=== PATIENT | male | born 1945 | race Two or more races ===

== ENCOUNTER 2018-06-04 12:27 | Inpatient (IN) | payer OTHER ==
--- NOTE | 2018-06-04 12:38 | PDOC ---
History of Present Illness - General Chief Complaint: Chest Pain Stated Complaint: CHEST PAIN Time Seen by Provider: 06/04/18 12:38 - History of Present Illness Initial Comments: 73 year old male with PMH of [place] (10 years prior in [place] without ay known intervention), HTN, HLD, and IDDM presenting from Dr. Whiting's office for one month of chest pain, tachycardia, and EKG changes with prior to compare to. Patient states that he has had 3-4 months of left shoulder pain that is achy and intermittent and (he stats) unrelated chest pain for the past month that he describes achy, non-exertional, non-pleuritic, intermittent, max 6/10 in severity, without exacerbating or relieving factors. He denies co-presenting, nausea, vomiting, or diaphoresis. Additionally, he is complaining of some right shoulder pain since a fall onto that side three days prior as well as some lower back pain. 06/04/18 13:10 Past History - Past Medical History Allergies/Adverse Reactions: Allergies Allergy/AdvReac Type Severity Reaction Status Date / Time No Known Allergies Allergy Verified 06/04/18 12:43 Home Medications: Ambulatory Orders Acetaminophen [Tylenol] 325 mg PO TID 06/04/18 Atorvastatin Ca [Lipitor] 40 mg PO HS 06/04/18 Enalapril Maleate [Vasotec] 20 mg PO DAILY 06/04/18 Ferrous Sulfate [Feosol] 325 mg PO DAILY 06/04/18 Gabapentin 100 mg PO BID 06/04/18 Glimepiride 4 mg PO DAILY 06/04/18 Insulin Degludec [Tresiba Flextouch U-200] 35 unit SQ HS 06/04/18 Insulin Lispro [Humalog] 10 unit SQ TID 06/04/18 Metformin HCl [Glucophage] 850 mg PO BID 06/04/18 hydrOXYzine HCL [Atarax -] 25 mg PO BID 06/04/18 Review of Systems - Review of Systems Constitutional: No: Chills, Diaphoresis, Fever HEENTM: No: Blurred Vision, Tearing Respiratory: No: Cough, Orthopnea, Shortness of Breath Cardiac (ROS): Yes: Chest Pain. No: Irregular Heart Rate, Lightheadedness, Palpitations, Syncope, Chest Tightness ABD/GI: No: Constipated, Diarrhea, Nausea, Vomiting : No: Dysuria, Discharge, Hematuria Musculoskeletal: No: Gout, Joint Pain Integumentary: No: Bruising, Erythema, Flushing, Lesions Neurological: No: Numbness, Paresthesia Psychiatric: No: Anxiety, Depression Hematologic/Lymphatic: No: Anemia, Blood Clots, Easy Bleeding *Physical Exam - Physical Exam General Appearance: Yes: Nourished, Appropriately Dressed. No: Apparent Distress HEENT: positive: EOMI, KEVIN, Normal ENT Inspection, Normal Voice Neck: positive: Trachea midline, Normal Thyroid, Supple. negative: Tender, Rigid Respiratory/Chest: positive: Lungs Clear. negative: Chest Tender, Normal Breath Sounds (distant lung sounds with extended expiratory phase), Accessory Muscle Use Cardiovascular: positive: Regular Rhythm, Tachycardia. negative: Regular Rate Gastrointestinal/Abdominal: positive: Normal Bowel Sounds, Flat, Soft. negative : Tender Lymphatic: negative: Adenopathy, Tenderness Musculoskeletal: negative: Normal Inspection (right shoulder tenderness and some lumbar back pain) Extremity: positive: Normal Capillary Refill, Tender. negative: Normal Inspection, Normal Range of Motion (slightly decreaed range of motion in th eleft shoulder) Integumentary: positive: Normal Color, Dry, Warm Neurologic: positive: Fully Oriented, Alert, Normal Mood/Affect, Normal Response , Motor Strength 5/5 Heart Score/ECG Review - History History: Slightly suspicious - Electrocardiogram EKG: Non specific repolarization disturbance - Age Age: >/= 65 - Risk Factors Risk Factors Heart Score: Yes Hx Hypertension, Yes Hx Diabetes, Yes Smoking History Based on the list above the patient has:: >/=3 risk factors or Hx atherosclerotic disease - Troponin Troponin: </= normal limit - Score Heart Score - Total: 5 ED Treatment Course - LABORATORY CBC & Chemistry Diagram: 06/04/18 13:00 06/04/18 13:00 Medical Decision Making - Medical Decision Making 73 year old male with PMH of HTN, HLD, smoking presenting with one month of chest pain and left shoulder pain. His troponin and D-dimer were negative and EKG demonstrating rate 116, MT 184, QRS 80, QTc 442, normal axis, with T wave inversion in V2 with dep S waves in II, III, AVF, and V1/ V3 without prior ekg to compare it to. Given his heart score of 5 and no previous cardiac workup in the [place] states, he will be brought in under tele obs for further evaluation under Dr. Ross with sign out to him. 06/04/18 15:56 Dr. Ross would also like consult placed fro Dr. Garner. 06/04/18 16:24 *DC/Admit/Observation/Transfer Diagnosis at time of Disposition: Ruled out for myocardial infarction - Discharge Dispostion Condition at time of disposition: Stable Decision to Admit order: Yes - Referrals Referrals: Vamsi Campbell MD [Primary Care Provider] - - Patient Instructions - Post Discharge Activity
--- NOTE | 2018-06-04 13:12 | PDOC ---
Attending Attestation - HPI HPI: 06/04/18 13:50 The patient is a 73 year old male with a significant PMH of hypertension, hyperlipidemia, [place] (10 years ago, medically treated ) who presents to the emergency department from PCP office with chest pain since earlier today. The patient reports that he was at his PCP office today ( Dr. Campbell) for a normal check up when he began to experience his chest pain. The patient reports that he was sent to the ED for further evaluation for that as well as for tachycardia , EKG changes and hypertension. The patient reports that he has been experiencing this intermittent chest pain for about 1 month. He denies any exacerbating or relieving factors. He describes his chest pain as sentral and a 5/10 in severity. He also reports some left shoulder pain that he has been experiencing for 4 months. He denies any other symptoms. He denies and fever, chills, nausea, vomiting, diarrhea, constipation or urinary symptoms. He denies any shortness of breath, headache or dizziness. The patient denies any other complaints. - Physicial Exam PE: 06/04/18 14:26 Vitals: Triage vital signs reviewed General Appearance: No acute distress, well nourished, well developed Head: Atraumatic Chest Wall: Nontender Cardiac: Regular rate and rhythm, no murmurs, no rubs, no gallops Lungs: Clear to auscultation bilateral, good air movement bilaterally Abdomen: Soft, nondistended, normal bowel sounds, nontender to palpation Extremities: Full range of motion to all extremities, no cyanosis, clubbing, or edema Skin: Warm and dry, no rashes or lesions, no rash, no petechiae Neuro: AOX3; Cranial Nerves 2-12 grossly intact, Strength intact to all extremities, Sensation intact to all extremities, gait normal Psych: Normal mood, normal affect <Lisseth Hendrix - Last Filed: 06/04/18 14:26> - Resident Resident Name: Monik Cash - Medical Decision Making 06/04/18 15:41 73 years old no recent follow-up with cardiology presents to the ED with chest pain Multiple risk factors nonischemic EKG mild tachycardia. Given tachycardia a d-dimer was ordered to risk stratify No other PE DVT risk factors D-dimer below age-adjusted threshold low suspicion for PE at this time Given heart score greater than 4 we will observe for cardiac evaluation and further management. <Artie Morejon - Last Filed: 06/04/18 15:43> Heart Score/ECG Review - History History: Moderately suspicious - Electrocardiogram EKG: Normal - Age Age: >/= 65 - Risk Factors Risk Factors Heart Score: Yes Hx Hypercholesterolemia, Yes Hx Hypertension, Yes Positive family hx of cardiac disease Based on the list above the patient has:: >/=3 risk factors or Hx atherosclerotic disease - Troponin Troponin: </= normal limit - Score Heart Score - Total: 5 - ECG Impressions Comment:: 06/04/18 15:43 EKG performed at 1237 demonstrates sinus tachycardia [address] elevations or T-wave inversions. Interpreted by me. <Artie Morejon - Last Filed: 06/04/18 15:43> Attestations - Attestations 06/04/18 14:26 Documentation prepared by Lisseth Hendrix, acting as medical office supervisor for Artie Morejon MD. <Lisseth Hendrix - Last Filed: 06/04/18 14:26>
[2018-06-04] MEDS ORDERED: ASPIRIN 81 MG CHEWABLE TABLETS PO ONE ×2 (13:39→14:00)
[2018-06-04 13:52] LABS: BASO % 0.6 % (0-2.0); EOS % 2.3 % (0-4.5); HEMATOCRIT 35.4 % (35.4-49); HEMOGLOBIN 12.1 GM/dL (11.7-16.9); LYMPH % 30.4 % (8-40); MCH 31.6 pg (25.7-33.7); MCHC 34.1 g/dl (32.0-35.9); MEAN CELL VOLUME 92.6 fl (80-96); MEAN PLT VOLUME 9.1 fl (7.5-11.1); MONO % 6.3 % (3.8-10.2); NEUT % 60.4 % (42.8-82.8); PLATELET COUNT 304 K/MM3 (134-434); RBC 3.82 M/mm3 (4.00-5.60); RDW 13.3 % (11.9-15.9); WHITE BLOOD COUNT 11.4 K/mm3 (4.0-10.0)
[2018-06-04 13:59] LABS: INR 0.97 (0.83-1.09); PROTHROMBIN TIME (PATIENT) 11.4 SEC (9.7-13.0)
[2018-06-04] MEDS ORDERED: ASPIRIN 81 MG CHEWABLE TABLETS ONE (14:02)
[2018-06-04 14:09] LABS: ALBUMIN 4.2 g/dl (3.4-5.0); ALK PHOS 73 U/L (45-117); ANION GAP 11 MMOL/L (8-16); BILIRUBIN,TOTAL 0.5 mg/dL (0.2-1); BLOOD UREA NITROGEN 35 mg/dL (7-18); CALCIUM 9.5 mg/dL (8.5-10.1); CHLORIDE 100 mmol/L (98-107); CO2 25 mmol/L (21-32); CREATININE 1.2 mg/dL (0.55-1.3); GLUCOSE,RANDOM 196 mg/dL (74-106); N-TERMINAL BNP 54.7 pg/ml (5-125); POTASSIUM 4.6 mmol/L (3.5-5.1); SGOT/AST 29 U/L (15-37); SGPT/ALT 56 U/L (13-61); SODIUM 136 mmol/L (136-145); TOT PROT 7.6 g/dl (6.4-8.2)
--- NOTE | 2018-06-04 16:12 | EKG ---
Test Reason : Blood Pressure : / mmHG Vent. Rate : 116 BPM Atrial Rate : 116 BPM P-R Int : 184 ms QRS Dur : 080 ms QT Int : 318 ms P-R-T Axes : 053 -24 074 degrees QTc Int : 442 ms SINUS TACHYCARDIA POSSIBLE LEFT ATRIAL ENLARGEMENT CANNOT RULE OUT ANTERIOR INFARCT , AGE UNDETERMINED ABNORMAL ECG NO PREVIOUS ECGS AVAILABLE Confirmed by MD Narayanan Daniel ([id number]) on 06/04/2018 4:12:30 PM Referred By: Confirmed By:Jude Narayanan MD
[2018-06-04] MEDS ORDERED: ACETAMINOPHEN 325 MG TABLET (FP) PO PRN (17:39)
--- NOTE | 2018-06-04 17:39 | CON.CARD ---
Consult Consult Specialty:: Cardiology Referred by:: Dr. Campbell Reason for Consultation:: chest pain - History of Present Illness Chief Complaint: chest pain History of Present Illness: 73 year old man pmh HTN, HLD, DMII, CAD reported [place] 10 years ago in [place] treated medically, admission [facility] 1 year ago for chest pain as per daughter may have had a stress test and echo that were normal. Pt seen in Dr. Romero office today with c/o 1 months h/o chest pain. seen and examined in er in nad. no current chest pain states it comes on randomnly not associated with exertion. no sob, palpitations or other associated sxs. - Alcohol/Substance Use Hx Alcohol Use: No - Smoking History Smoking history: Former smoker Have you smoked in the past 12 months: No Home Medications - Allergies Allergies/Adverse Reactions: Allergies Allergy/AdvReac Type Severity Reaction Status Date / Time No Known Allergies Allergy Verified 06/04/18 12:43 - Home Medications Home Medications: Ambulatory Orders Acetaminophen [Tylenol] 325 mg PO TID 06/04/18 Atorvastatin Ca [Lipitor] 40 mg PO HS 06/04/18 Enalapril Maleate [Vasotec] 20 mg PO DAILY 06/04/18 Ferrous Sulfate [Feosol] 325 mg PO DAILY 06/04/18 Gabapentin 100 mg PO BID 06/04/18 Glimepiride 4 mg PO DAILY 06/04/18 Insulin Degludec [Tresiba Flextouch U-200] 35 unit SQ HS 06/04/18 Insulin Lispro [Humalog] 10 unit SQ TID 06/04/18 Metformin HCl [Glucophage] 850 mg PO BID 06/04/18 hydrOXYzine HCL [Atarax -] 25 mg PO BID 06/04/18 Vital Signs: Vital Signs Temperature 98.0 F 06/04/18 12:30 Pulse Rate 110 H 06/04/18 12:43 Respiratory Rate 16 06/04/18 12:30 Blood Pressure 161/89 06/04/18 12:30 O2 Sat by Pulse Oximetry (%) 95 06/04/18 12:43 - Other Data Labs, Other Data: CBC, BMP 06/04/18 13:00 06/04/18 13:00 INR, PTT INR 0.97 (0.83-1.09) 06/04/18 13:00 Troponin, BNP 06/04/18 13:00 Troponin I < 0.02 B-Natriuretic Peptide 54.7 Troponin, BNP 06/04/18 13:00 Troponin I < 0.02 B-Natriuretic Peptide 54.7 Assessment/Plan 73 year old man pmh HTN, HLD, DMII, CAD reported [place] 10 years ago in [place] treated medically, admission [facility] 1 year ago for chest pain as per daughter may have had a stress test and echo that were normal. Pt seen in Dr. Romero office today with c/o 1 months h/o chest pain. seen and examined in er in nad. no current chest pain states it comes on randomnly not associated with exertion. no sob, palpitations or other associated sxs. Chest pain-atypical but mult cardiac risk factors -troponin wnl x1 -needs serial cardiac enzymes and ekgs including CK level -admission ekg shows sinus tach 116bpm with possible old anterior infarct -clarify home meds -start asa 81mg daily, statin, bblocker -tele monitoring -if cardiac enzymes wnl plan for echo and nuclear stress test tomorrow, npo after midnight
[2018-06-04] MEDS ORDERED: ACETAMINOPHEN 325 MG TABLET (FP) ONE (17:42)
[2018-06-04] MEDS ORDERED: hydrOXYzine HCL 50 MG/ML VIAL IM ONE (21:50)
[2018-06-04] MEDS ORDERED: ATORVASTATIN CA 10 MG TABLET (FP) ONE (21:50)
[2018-06-04] MEDS ORDERED: HEPARIN NA (PORCINE) 5,000 UNITS/ML 1ML VIAL ONE (21:51)
[2018-06-04] MEDS ORDERED: GABAPENTIN 100 MG CAPSULE (FP) ONE (21:51)
[2018-06-04] MEDS ORDERED: INSULIN (LEVEMIR) 100 UNITS/ML UNITS SQ ONE (21:51)
[2018-06-04] MEDS ORDERED: PATIENT'S OWN MEDICATION (NON-FORMULARY) (Acetaminophen [Tylenol] 325 MG) PO SCH (22:00)
[2018-06-04] MEDS: HEPARIN NA (PORCINE) 5,000 UNITS/ML 1ML VIAL SQ SCH (22:07)
[2018-06-04] MEDS: GABAPENTIN 100 MG CAPSULE (FP) PO SCH (22:07)
[2018-06-04] MEDS: INSULIN (LEVEMIR) 100 UNITS/ML UNITS SQ SCH (22:07)
[2018-06-04] MEDS: hydrOXYzine HCL 25 MG TABLET (FP) PO SCH (22:07)
[2018-06-04] MEDS: ATORVASTATIN CA 40 MG TABLET (FP) PO SCH (22:07)
[2018-06-04] MEDS ORDERED: INSULIN (NOVOLOG) ASPART 100 UNITS/ML 10ML VIAL ONE (22:10)
[2018-06-04] MEDS: INSULIN SLIDING SCALE (NOVOLOG) 1 VIAL SQ SCH (22:18)
[2018-06-05 05:56] LABS: BASO % 0.3 % (0-2.0); EOS % 0.9 % (0-4.5); HEMATOCRIT 34.3 % (35.4-49); HEMOGLOBIN 11.7 GM/dL (11.7-16.9); LYMPH % 15.4 % (8-40); MCHC 34.1 g/dl (32.0-35.9); MEAN PLT VOLUME 8.1 fl (7.5-11.1); MONO % 6.1 % (3.8-10.2); NEUT % 77.3 % (42.8-82.8); PLATELET COUNT 277 K/MM3 (134-434); RBC 3.77 M/mm3 (4.00-5.60); RDW 13.1 % (11.9-15.9); WHITE BLOOD COUNT 12.3 K/mm3 (4.0-10.0)
[2018-06-05 06:39] LABS: ALBUMIN 3.8 g/dl (3.4-5.0); ALK PHOS 69 U/L (45-117); ANION GAP 7 MMOL/L (8-16); BLOOD UREA NITROGEN 26 mg/dL (7-18); CALCIUM 9.2 mg/dL (8.5-10.1); CHLORIDE 106 mmol/L (98-107); CHOLESTEROL 106 mg/dL (50-200); CO2 27 mmol/L (21-32); CREATININE 0.9 mg/dL (0.55-1.3); GLUCOSE,RANDOM 57 mg/dL (74-106); HDL CHOLESTEROL 29 mg/dL (40-60); POTASSIUM 3.4 mmol/L (3.5-5.1); SGOT/AST 23 U/L (15-37); SGPT/ALT 57 U/L (13-61); SODIUM 140 mmol/L (136-145); TRIGLYCERIDES 118 mg/dL (0-150)
[2018-06-05 06:42] LABS: BILIRUBIN,TOTAL 0.4 mg/dL (0.2-1); TOT PROT 6.9 g/dl (6.4-8.2)
[2018-06-05] MEDS ORDERED: REGADENOSON 0.4 MG/5 ML PRE-FILLED SYRINGE IVPUSH ONE ×3 (09:00→14:00)
[2018-06-05] MEDS: INSULIN SLIDING SCALE (NOVOLOG) 1 VIAL SQ SCH ×4 (11:13→22:13)
[2018-06-05] MEDS: hydrOXYzine HCL 25 MG TABLET (FP) PO SCH ×2 (11:14→22:15)
[2018-06-05] MEDS: GABAPENTIN 100 MG CAPSULE (FP) PO SCH ×2 (11:14→22:15)
[2018-06-05] MEDS ORDERED: ENALAPRIL MALEATE 5 MG TABLET (FP) ONE (11:17)
[2018-06-05] MEDS: ENALAPRIL MALEATE 10 MG TABLET (FP) PO SCH (11:18)
[2018-06-05] MEDS: HEPARIN NA (PORCINE) 5,000 UNITS/ML 1ML VIAL SQ SCH ×2 (11:31→22:15)
--- NOTE | 2018-06-05 13:14 | ECHO ---
Name: FRANKLIN CRUM IRISH Exam:Adult Echocardiogram Study Date: 06/05/2018 07:43 AM Age: 73 yrs Reason For Study: CHEST PAIN Height: 60 in Weight: 155 lb BSA: 1.7 m2 MMode/2D Measurements & Calculations IVSd: 1.1 cm Ao root diam: 3.1 cm LVIDd: 4.1 cm LA dimension: 3.4 cm LVIDs: 2.9 cm LVPWd: 1.1 cm EDV(Teich): 73.5 ml LVOT diam: 2.2 cm ESV(Teich): 31.2 ml RV S Kevin: 13.5 cm/sec Doppler Measurements & Calculations Ao V2 max: 121.6 cm/sec LV V1 max P.1 mmHg Ao max P.9 mmHg LV V1 mean P.4 mmHg Ao V2 mean: 76.9 cm/sec LV V1 max: 87.9 cm/sec Ao mean P.9 mmHg LV V1 mean: 53.2 cm/sec Ao V2 VTI: 20.9 cm LV V1 VTI: 15.9 cm SIMON(I,D): 3.0 cm2 SIMON(V,D): 2.8 cm2 SV(LVOT): 61.7 ml Lat Peak E' Kevin: 4.4 cm/sec Procedure A two-dimensional transthoracic echocardiogram with color flow and Doppler was performed. Left Ventricle The left ventricular size, thickness and function are normal. The left ventricular ejection fraction is normal. The left ventricular wall motion is normal. Right Ventricle The right ventricle is normal in size and function. Atria Normal left and right atrial size and function. Chiari network (normal variant) is noted. A prominent eustachian valve is noted. The atrial septum is aneurysmal. Mitral Valve There is mild mitral valve thickening. There is no mitral valve stenosis. There is mild mitral regurg itation. Tricuspid Valve There is mild tricuspid valve thickening. There is no tricuspid stenosis. There was insufficient TR d etected to calculate RV systolic pressure. Aortic Valve The aortic valve is normal in structure and function. No hemodynamically significant valvular aortic stenosis. No aortic regurgitation is present. Pulmonic Valve The pulmonic valve is not well visualized. There is no pulmonic valvular stenosis. Trace pulmonic marko vular regurgitation. Pericardium/Pleura Small pericardial effusion (<1cm). Interpretation Summary The left ventricular size, thickness and function are normal The left ventricular ejection fraction is normal. The left ventricular wall motion is normal. Small pericardial effusion (<1cm) There is mild mitral regurgitation. Chiari network (normal variant) is noted. A prominent eustachian valve is noted. There was insufficient TR detected to calculate RV systolic pressure. The atrial septum is aneurysmal. MD Michael Pompa 06/05/2018 01:13 PM
--- NOTE | 2018-06-05 14:49 | EKG ---
Test Reason : Blood Pressure : / mmHG Vent. Rate : 104 BPM Atrial Rate : 104 BPM P-R Int : 194 ms QRS Dur : 082 ms QT Int : 338 ms P-R-T Axes : 049 -32 086 degrees QTc Int : 444 ms SINUS TACHYCARDIA LEFT AXIS DEVIATION NONSPECIFIC T WAVE ABNORMALITY ABNORMAL ECG WHEN COMPARED WITH ECG OF 04-JUN-2018 12:37, NO SIGNIFICANT CHANGE WAS FOUND Confirmed by ETHAN BUTLER, ISAAC ([id number]) on 06/05/2018 2:49:18 PM Referred By: Rozina THORNTON Confirmed By:ISAAC LONG MD
--- NOTE | 2018-06-05 16:49 | PN ---
Progress Note, Physician Chief Complaint: Comfortable History of Present Illness: 73 year old man pmh HTN, HLD, DMII, CAD reported [place] 10 years ago in [place] treated medically, admission [facility] 1 year ago for chest pain as per daughter may have had a stress test and echo that were normal. Pt seen in Dr. Romero office today with c/o 1 months h/o chest pain. seen and examined in er in nad. no current chest pain states it comes on randomnly not associated with exertion. no sob, palpitations or other associated sxs. - Current Medication List Current Medications: Active Medications Acetaminophen (Tylenol -) 650 mg PO Q6H PRN PRN Reason: PAIN LEVEL 4 - 6 Atorvastatin Calcium (Lipitor -) 40 mg PO [facility] Last Admin: 06/04/18 22:07 Dose: 40 mg Enalapril Maleate (Vasotec -) 20 mg PO DAILY [facility] Last Admin: 06/05/18 11:18 Dose: 20 mg Gabapentin (Neurontin -) 100 mg PO BID [facility] Last Admin: 06/05/18 11:14 Dose: Not Given Heparin Sodium (Porcine) (Heparin -) 5,000 unit SQ BID [facility] Last Admin: 06/05/18 11:31 Dose: Not Given Hydroxyzine HCl (Atarax -) 25 mg PO BID [facility] Last Admin: 06/05/18 11:14 Dose: Not Given Insulin Aspart (Novolog Vial Sliding Scale -) 1 vial SQ [facility]; Protocol Last Admin: 06/05/18 11:31 Dose: Not Given Insulin Detemir (Levemir Vial) 35 units SQ [facility] Last Admin: 06/04/18 22:07 Dose: 35 unit - Objective Vital Signs: Vital Signs Temperature 98.0 F 06/05/18 06:45 Pulse Rate 74 06/05/18 06:45 Respiratory Rate 15 06/05/18 06:45 Blood Pressure 134/79 06/05/18 06:45 O2 Sat by Pulse Oximetry (%) 98 06/05/18 06:45 Constitutional: Yes: Well Nourished HENT: Yes: WNL Neck: Yes: WNL Cardiovascular: Yes: Regular Rate and Rhythm (NL S1S2 No MRHG) Respiratory: Yes: CTA Bilaterally Gastrointestinal: Yes: Soft Labs: CBC, BMP 06/05/18 05:30 06/05/18 05:30 INR, PTT INR 0.97 (0.83-1.09) 06/04/18 13:00 Assessment/Plan 73 year old man pmh HTN, HLD, DMII, CAD reported [place] 10 years ago in [place] treated medically, admission [facility] 1 year ago for chest pain as per daughter may have had a stress test and echo that were normal. Pt seen in Dr. Romero office today with c/o 1 months h/o chest pain. seen and examined in er in nad. no current chest pain states it comes on randomnly not associated with exertion. no sob, palpitations or other associated sxs. Nuclear stress test negative for myocardial ischemia. Echocardiogram NL LV function. No further cardiac testing required. Call us PRN.
[2018-06-05] MEDS ORDERED: INSULIN (NOVOLOG) ASPART 100 UNITS/ML 10ML VIAL ONE (17:18)
[2018-06-05] MEDS ORDERED: POTASSIUM CHLORIDE TABS 10 MEQ TABLET.ER (FP) PO ONE (17:39)
--- NOTE | 2018-06-05 17:42 | HP ---
Admitting History and Physical - Primary Care Physician PCP: Vamsi Campbell - Admission Chief Complaint: Chest pain History of Present Illness: 73 year old male with PMH of [place] (10 years prior in [place] without ay known intervention), HTN, HLD, and IDDM presenting from Dr. Whiting's office for one month of chest pain, tachycardia, and EKG changes with prior to compare to. Patient states that he has had 3-4 months of left shoulder pain that is achy and intermittent and (he stats) unrelated chest pain for the past month that he describes achy, non-exertional, non-pleuritic, intermittent, max 6/10 in severity, without exacerbating or relieving factors. He denies co-presenting, nausea, vomiting, or diaphoresis. Additionally, he is complaining of some right shoulder pain since a fall onto that side three days prior as well as some lower back pain. History Source: Patient, Medical Record Limitations to Obtaining History: No Limitations - Smoking History Smoking history: Former smoker Have you smoked in the past 12 months: No - Alcohol/Substance Use Hx Alcohol Use: No Home Medications - Allergies Allergies/Adverse Reactions: Allergies Allergy/AdvReac Type Severity Reaction Status Date / Time No Known Allergies Allergy Verified 06/04/18 12:43 - Home Medications Home Medications: Ambulatory Orders Acetaminophen [Tylenol] 325 mg PO TID 06/04/18 Atorvastatin Ca [Lipitor] 40 mg PO HS 06/04/18 Enalapril Maleate [Vasotec] 20 mg PO DAILY 06/04/18 Ferrous Sulfate [Feosol] 325 mg PO DAILY 06/04/18 Gabapentin 100 mg PO BID 06/04/18 Glimepiride 4 mg PO DAILY 06/04/18 Insulin Degludec [Tresiba Flextouch U-200] 35 unit SQ HS 06/04/18 Insulin Lispro [Humalog] 10 unit SQ TID 06/04/18 Metformin HCl [Glucophage] 850 mg PO BID 06/04/18 hydrOXYzine HCL [Atarax -] 25 mg PO BID 06/04/18 Review of Systems - Review of Systems Constitutional: reports: No Symptoms Eyes: reports: No Symptoms HENT: reports: No Symptoms Neck: reports: No Symptoms Cardiovascular: reports: Chest Pain Respiratory: reports: No Symptoms Gastrointestinal: reports: No Symptoms Genitourinary: reports: No Symptoms Breasts: reports: No Symptoms Reported Musculoskeletal: reports: No Symptoms Integumentary: reports: No Symptoms Neurological: reports: No Symptoms Endocrine: reports: No Symptoms Hematology/Lymphatic: reports: No Symptoms Psychiatric: reports: No Symptoms Physical Examination Vital Signs: Vital Signs Temperature 98.0 F 06/05/18 06:45 Pulse Rate 74 06/05/18 06:45 Respiratory Rate 15 06/05/18 06:45 Blood Pressure 134/79 06/05/18 06:45 O2 Sat by Pulse Oximetry (%) 98 06/05/18 06:45 Constitutional: Yes: Well Nourished, No Distress, Calm Cardiovascular: Yes: Regular Rate and Rhythm Respiratory: Yes: Regular Gastrointestinal: Yes: Normal Bowel Sounds, Soft Musculoskeletal: Yes: WNL Extremities: Yes: WNL Edema: No Peripheral Pulses WNL: Yes Neurological: Yes: Alert, Oriented Psychiatric: Yes: Alert, Oriented Labs: CBC, BMP 06/05/18 05:30 06/05/18 05:30 Imaging - Results Chest X-ray: Report Reviewed X-ray: Report Reviewed EKG: Report Reviewed Problem List - Problems (1) Chest pain Assessment/Plan: -Stress test -Echo -Cardiology consult appreciated -EKG unchanged -Trops negative -tele minitoring -CTA negative for PE, by chance finding of LLL pulmonary nodule, can be followed up outpatient Code(s): R07.9 - CHEST PAIN, UNSPECIFIED (2) Pulmonary nodule Code(s): R91.1 - SOLITARY PULMONARY NODULE (3) Leukocytosis Assessment/Plan: -monitor trend -afebrile -Check UA/UC -Hematology consult -Unsure of the baseline Code(s): D72.829 - ELEVATED WHITE BLOOD CELL COUNT, UNSPECIFIED (4) Diabetes Assessment/Plan: -BGM AC HS -Diabetic low sodium diet -Insulin: Novolog+Levemir -A1c at 9.0 -RD consult -Endocrine consult Code(s): E11.9 - TYPE 2 DIABETES MELLITUS WITHOUT COMPLICATIONS (5) Hypokalemia Assessment/Plan: -likely 2/2 to NPO status -replace with KCl 40 meq once -monitor trend Code(s): E87.6 - HYPOKALEMIA (6) Hyperlipidemia Assessment/Plan: -LDL t goal at 63 mg/dl -Continue statin Code(s): E78.5 - HYPERLIPIDEMIA, UNSPECIFIED Assessment/Plan see problem list Physical therapy D/C home once cleared by Cardiology
[2018-06-05] MEDS ORDERED: PANTOPRAZOLE 40 MG TABLET (FP) ONE (18:08)
[2018-06-05] MEDS ORDERED: POTASSIUM CHLORIDE TABS 20 MEQ TABLET.ER (FP) PO ONE (18:08)
[2018-06-05] MEDS: PANTOPRAZOLE 40 MG TABLET (FP) PO SCH (18:10)
[2018-06-05] MEDS: INSULIN (LEVEMIR) 100 UNITS/ML UNITS SQ SCH (22:15)
[2018-06-05] MEDS: ATORVASTATIN CA 40 MG TABLET (FP) PO SCH (22:15)
[2018-06-06] MEDS: INSULIN SLIDING SCALE (NOVOLOG) 1 VIAL SQ SCH ×2 (06:26→11:33)
[2018-06-06 07:23] LABS: BASO % 0.6 % (0-2.0); EOS % 3.5 % (0-4.5); HEMATOCRIT 32.5 % (35.4-49); HEMOGLOBIN 11.3 GM/dL (11.7-16.9); MCH 31.8 pg (25.7-33.7); MCHC 34.8 g/dl (32.0-35.9); MEAN CELL VOLUME 91.4 fl (80-96); MEAN PLT VOLUME 8.8 fl (7.5-11.1); MONO % 9.3 % (3.8-10.2); NEUT % 48.6 % (42.8-82.8); PLATELET COUNT 267 K/MM3 (134-434); RBC 3.55 M/mm3 (4.00-5.60); RDW 13.1 % (11.9-15.9); WHITE BLOOD COUNT 8.8 K/mm3 (4.0-10.0)
[2018-06-06 07:58] LABS: ALBUMIN 3.6 g/dl (3.4-5.0); ALK PHOS 68 U/L (45-117); ANION GAP 9 MMOL/L (8-16); BILIRUBIN,TOTAL 0.8 mg/dL (0.2-1); BLOOD UREA NITROGEN 33 mg/dL (7-18); CHLORIDE 106 mmol/L (98-107); CO2 24 mmol/L (21-32); CREATININE 1.2 mg/dL (0.55-1.3); GLUCOSE,RANDOM 187 mg/dL (74-106); POTASSIUM 4.4 mmol/L (3.5-5.1); SGOT/AST 15 U/L (15-37); SGPT/ALT 42 U/L (13-61); SODIUM 139 mmol/L (136-145); TOT PROT 6.8 g/dl (6.4-8.2)
[2018-06-06] MEDS: GABAPENTIN 100 MG CAPSULE (FP) PO SCH (09:54)
[2018-06-06] MEDS: ENALAPRIL MALEATE 10 MG TABLET (FP) PO SCH (09:54)
[2018-06-06] MEDS: PANTOPRAZOLE 40 MG TABLET (FP) PO SCH (09:54)
[2018-06-06] MEDS: hydrOXYzine HCL 25 MG TABLET (FP) PO SCH (09:54)
[2018-06-06] MEDS: HEPARIN NA (PORCINE) 5,000 UNITS/ML 1ML VIAL SQ SCH (09:54)
[2018-06-06 12:16] LABS: URINE APPEARANCE CLEAR; URINE BILIRUBIN NEGATIVE (<2.0 mg/dL); URINE COLOR YELLOW; URINE GLUCOSE (UA) 2+ (NEGATIVE); URINE KETONE NEGATIVE (NEGATIVE); URINE LEUK ESTERASE NEGATIVE (NEGATIVE); URINE NITRITE NEGATIVE (NEGATIVE); URINE PROTEIN NEGATIVE (NEGATIVE); URINE UROBILINOGEN NEGATIVE mg/dL (0.2-1.0)
[2018-06-06 13:06] VITALS: BMI 28.1
[2018-06-06 14:18] VITALS: BP 149/84; PULSE 99; TEMP 98
--- NOTE | 2018-06-06 14:28 | CONSULT ---
Consultation: REQUESTING PROVIDER: Dr. Ross CONSULT REQUEST: We have been asked to medically evaluate this patient for leukocytosis HISTORY OF PRESENT ILLNESS: This is a 73 year old male from [place], Spanish speaking who presents with chest pain at rest, s/p nuclear stress test done here (negative). Called to evaluate for leukocytosis of 12; H/H wnl on admission, now resolved. Today labs reveal mild normocytic anemia. Patient denies fever, chills, n, v, d, cough, sick contacts, recent travel, blood, disorder, hx of cancer or family history of cancer. PMHx: HTN, CAD, DM (uncontrolled) PSHx: none Social hx: denies tobacco, alcohol, drug use REVIEW OF SYSTEMS: CONSTITUTIONAL: Absent: fever, chills, diaphoresis, generalized weakness, malaise, loss of appetite, weight change HEENT: Absent: rhinorrhea, nasal congestion, throat pain, throat swelling, difficulty swallowing, mouth swelling, ear pain, eye pain, visual changes CARDIOVASCULAR: Positive: chest pain (resolved) Absent:, syncope, palpitations, irregular heart rate, lightheadedness, peripheral edema RESPIRATORY: Absent: cough, shortness of breath, dyspnea with exertion, orthopnea, wheezing, stridor, hemoptysis GASTROINTESTINAL: Absent: abdominal pain, abdominal distension, nausea, vomiting, diarrhea, constipation, melena, hematochezia GENITOURINARY: Absent: dysuria, frequency, urgency, hesitancy, hematuria, flank pain, genital pain MUSCULOSKELETAL: Absent: myalgia, arthralgia, joint swelling, back pain, neck pain SKIN: Absent: rash, itching, pallor HEMATOLOGIC/IMMUNOLOGIC: Absent: easy bleeding, easy bruising, lymphadenopathy, frequent infections ENDOCRINE: Absent: unexplained weight gain, unexplained weight loss, heat intolerance, cold intolerance NEUROLOGIC: Absent: headache, focal weakness or paresthesias, dizziness, unsteady gait, seizure, mental status changes, bladder or bowel incontinence PSYCHIATRIC: Absent: anxiety, depression, suicidal or homicidal ideation, hallucinations. PHYSICAL EXAMINATION Vital Signs - 24 hr 06/05/18 06/05/18 06/05/18 17:00 21:00 22:00 Temperature 98.3 F 98.0 F Pulse Rate 96 H Pulse Rate [ 109 H Apical] Respiratory 18 18 19 Rate Blood Pressure 141/75 Blood Pressure 122/75 [Right Arm] O2 Sat by Pulse 98 96 Oximetry (%) 06/05/18 06/06/18 06/06/18 23:04 01:53 05:47 Temperature 97.9 F 98.7 F 97.8 F Pulse Rate 93 H 92 H 81 Pulse Rate [ Apical] Respiratory 18 18 18 Rate Blood Pressure 134/82 125/59 L 100/53 L Blood Pressure [Right Arm] O2 Sat by Pulse 96 Oximetry (%) 06/06/18 06/06/18 06/06/18 06:23 10:00 14:17 Temperature 98.4 F 98.0 F Pulse Rate 97 H 99 H Pulse Rate [ Apical] Respiratory 18 16 Rate Blood Pressure 133/72 142/78 149/84 Blood Pressure [Right Arm] O2 Sat by Pulse Oximetry (%) GENERAL: Awake, alert, and fully oriented, in no acute distress. HEAD: Normal with no signs of trauma. EYES: Pupils equal, round and reactive to light, extraocular movements intact, sclera anicteric, conjunctiva clear. No lid lag. EARS, NOSE, THROAT: Ears normal, nares patent, oropharynx clear without exudates. Moist mucous membranes. NECK: Normal range of motion, supple without lymphadenopathy, JVD, or masses. LUNGS: Breath sounds equal, clear to auscultation bilaterally. No wheezes, and no crackles. No accessory muscle use. Breast/axilla; negative lumps, ,masses HEART: Regular rate and rhythm, normal S1 and S2 without murmur, rub or gallop. ABDOMEN: Soft, nontender, + distended, normoactive bowel sounds, no guarding, no rebound, no masses. No hepatomegaly or splenomegaly. MUSCULOSKELETAL: Normal range of motion at all joints. No bony deformities or tenderness. No CVA tenderness. UPPER EXTREMITIES: 2+ pulses, warm, well-perfused. No cyanosis. No clubbing. Cap refill <2 seconds. No peripheral edema. LOWER EXTREMITIES: 2+ pulses, warm, well-perfused. No calf tenderness. No peripheral edema. NEUROLOGICAL: Cranial nerves II-XII intact. Normal speech. PSYCHIATRIC: Cooperative. Good eye contact. Appropriate mood and affect. SKIN: Warm, dry, normal turgor, no rashes or lesions noted. Laboratory Results - last 24 hr 06/05/18 06/05/18 06/06/18 17:00 22:10 06:16 WBC RBC Hgb Hct MCV MCH MCHC RDW Plt Count MPV Absolute Neuts (auto) Neutrophils % Lymphocytes % Monocytes % Eosinophils % Basophils % Nucleated RBC % Sodium Potassium Chloride Carbon Dioxide Anion Gap BUN Creatinine Creat Clearance w eGFR POC Glucometer 318 186 217 Random Glucose Calcium Total Bilirubin AST ALT Alkaline Phosphatase Total Protein Albumin Urine Color Urine Appearance Urine pH Ur Specific Dawson Urine Protein Urine Glucose (UA) Urine Ketones Urine Blood Urine Nitrite Urine Bilirubin Urine Urobilinogen Ur Leukocyte Esterase 06/06/18 06/06/18 06/06/18 06:30 06:30 11:30 WBC 8.8 RBC 3.55 L Hgb 11.3 L Hct 32.5 L MCV 91.4 MCH 31.8 MCHC 34.8 RDW 13.1 Plt Count 267 MPV 8.8 Absolute Neuts (auto) 4.3 Neutrophils % 48.6 D Lymphocytes % 38.0 D Monocytes % 9.3 Eosinophils % 3.5 D Basophils % 0.6 Nucleated RBC % 0 Sodium 139 Potassium 4.4 Chloride 106 Carbon Dioxide 24 Anion Gap 9 BUN 33 H Creatinine 1.2 Creat Clearance w eGFR 59.68 POC Glucometer Random Glucose 187 H Calcium 9.0 Total Bilirubin 0.8 AST 15 ALT 42 Alkaline Phosphatase 68 Total Protein 6.8 Albumin 3.6 Urine Color Yellow Urine Appearance Clear Urine pH 5.0 Ur Specific Dawson 1.020 Urine Protein Negative Urine Glucose (UA) 2+ H Urine Ketones Negative Urine Blood Negative Urine Nitrite Negative Urine Bilirubin Negative Urine Urobilinogen Negative Ur Leukocyte Esterase Negative 06/06/18 11:32 WBC RBC Hgb Hct MCV MCH MCHC RDW Plt Count MPV Absolute Neuts (auto) Neutrophils % Lymphocytes % Monocytes % Eosinophils % Basophils % Nucleated RBC % Sodium Potassium Chloride Carbon Dioxide Anion Gap BUN Creatinine Creat Clearance w eGFR POC Glucometer 218 Random Glucose Calcium Total Bilirubin AST ALT Alkaline Phosphatase Total Protein Albumin Urine Color Urine Appearance Urine pH Ur Specific Dawson Urine Protein Urine Glucose (UA) Urine Ketones Urine Blood Urine Nitrite Urine Bilirubin Urine Urobilinogen Ur Leukocyte Esterase Active Medications Generic Name Dose Route Start Last Admin Trade Name Freq PRN Reason Stop Dose Admin Acetaminophen 650 mg 06/04/18 17:39 Tylenol - PO Q6H PRN PAIN LEVEL 4 - 6 Atorvastatin Calcium 40 mg 06/04/18 22:00 06/05/18 22:15 Lipitor - PO 40 mg HS SERENITY Administration Enalapril Maleate 20 mg 06/05/18 10:00 06/06/18 09:54 Vasotec - PO 20 mg DAILY SERENITY Administration Gabapentin 100 mg 06/04/18 22:00 06/06/18 09:54 Neurontin - PO 100 mg BID SERENITY Administration Heparin Sodium (Porcine) 5,000 unit 06/04/18 22:00 06/06/18 09:54 Heparin - SQ 5,000 unit BID SERENITY Administration Hydroxyzine HCl 25 mg 06/04/18 22:00 06/06/18 09:54 Atarax - PO 25 mg BID SERENITY Administration Insulin Aspart 1 vial 06/04/18 22:00 06/06/18 11:33 Novolog Vial Sliding Scale - SQ 2 units ACHS SERENITY Administration Protocol Insulin Detemir 35 units 06/04/18 22:00 06/05/18 22:15 Levemir Vial SQ 35 unit HS SERENITY Administration Pantoprazole Sodium 40 mg 06/05/18 17:45 06/06/18 09:54 Protonix - PO 40 mg DAILY SERENITY Administration ASSESSMENT/PLAN: This is a 73 year old male with uncontrolled DM, HTN, HLD, CAD hx?, who presents with chest pain. Nuclear stress test negative. Leukocytosis of 12 on admission , now resolved without intervention. Leukocytosis; resolved mild normocytic anemia chest pain: resolved HTN hx HLD uncontrolled diabetes -leukocytosis resolved no signs/symptoms of infection -now with normocytic anemia; H/H (11.3/32.5) ; small decrease in platelets, still nml range; -repeat labs; if gets dc'd; can repeat as outpatient; if continues to be low would order b12, folate, iron studies Dispo: We will continue to follow the patient. Thank you for this consultative opportunity. Visit type - Emergency Visit Emergency Visit: Yes ED Registration Date: 06/04/18 Care time: The patient presented to the Emergency Department on the above date and was hospitalized for further evaluation of their emergent condition. - New Patient This patient is new to me today: No - Critical Care Critical Care patient: No
--- NOTE | 2018-06-06 15:04 | DS ---
Physical Examination Vital Signs: Vital Signs Temperature 98.0 F 06/06/18 14:17 Pulse Rate 99 H 06/06/18 14:17 Respiratory Rate 16 06/06/18 14:17 Blood Pressure 149/84 06/06/18 14:17 O2 Sat by Pulse Oximetry (%) 96 06/06/18 09:00 Constitutional: Yes: Calm Cardiovascular: Yes: Regular Rate and Rhythm, S1, S2 Respiratory: Yes: CTA Bilaterally Gastrointestinal: Yes: Normal Bowel Sounds, Soft Edema: No Neurological: Yes: Alert Labs: CBC, BMP 06/06/18 06:30 06/06/18 06:30 Discharge Summary Reason For Visit: RULED OUT FOR MYOCARDIAL INFARCTION/CHEST PAIN Current Active Problems Chest pain (Acute) Diabetes (Acute) Hyperlipidemia (Acute) Hypokalemia (Acute) Leukocytosis (Acute) Pulmonary nodule (Acute) Ruled out for myocardial infarction (Acute) Other Procedures: stress test negative. echo done as well Hospital Course: - Primary Care Physician PCP: Vamsi Campbell - Admission Chief Complaint: Chest pain History of Present Illness: 73 year old male with PMH of [place] (10 years prior in [place] without ay known intervention), HTN, HLD, and IDDM presenting from Dr. Whiting's office for one month of chest pain, tachycardia, and EKG changes with prior to compare to. Patient states that he has had 3-4 months of left shoulder pain that is achy and intermittent and (he stats) unrelated chest pain for the past month that he describes achy, non-exertional, non-pleuritic, intermittent, max 6/10 in severity, without exacerbating or relieving factors. He denies co-presenting, nausea, vomiting, or diaphoresis. Additionally, he is complaining of some right shoulder pain since a fall onto that side three days prior as well as some lower back pain. Condition: Stable - Instructions Referrals: Vamsi Campbell MD [Primary Care Provider] - Disposition: HOME - Home Medications Comprehensive Discharge Medication List: Ambulatory Orders Acetaminophen [Tylenol] 325 mg PO TID 06/04/18 Atorvastatin Ca [Lipitor] 40 mg PO HS 06/04/18 Enalapril Maleate [Vasotec] 20 mg PO DAILY 06/04/18 Ferrous Sulfate [Feosol] 325 mg PO DAILY 06/04/18 Gabapentin 100 mg PO BID 06/04/18 Glimepiride 4 mg PO DAILY 06/04/18 Insulin Degludec [Tresiba Flextouch U-200] 35 unit SQ HS 06/04/18 Insulin Lispro [Humalog] 10 unit SQ TID 06/04/18 Metformin HCl [Glucophage] 850 mg PO BID 06/04/18 hydrOXYzine HCL [Atarax -] 25 mg PO BID 06/04/18
== END 2018-06-06 15:34 | disposition home or self-care (01) | DRG 313 ==
LOC: EDBD 12:27 → JER 12:27 → JERBED 13:20 → J4S 06-05 20:30
PROVIDERS: ADMIT Family Medicine; ATTEND Family Medicine
DX: R07.89 Other chest pain (principal); I25.2 Old myocardial infarction; I10 Essential (primary) hypertension; E78.5 Hyperlipidemia, unspecified; Z79.4 Long term (current) use of insulin; R91.1 Solitary pulmonary nodule; E87.6 Hypokalemia; D72.829 Elevated white blood cell count, unspecified; D64.9 Anemia, unspecified; E11.65 Type 2 diabetes mellitus with hyperglycemia
CPT/HCPCS: 36415; 71045-TC-FY; 71275-TC; 72070-TC-FY; 72100-TC-FY; 73030-TC-RT-FY; 78452-TC; 80053; 80061; 81003; 82550; 82962; 83036; 83721; 83880; 84484; 85025; 85379; 85610; 87086; 93005; 93010; 93017; 93306-TC; 97116-GP; 97161-GP; 99285-25; A9502; J1644

== ENCOUNTER 2024-01-12 09:51 | Inpatient (IN) | payer OTHER ==
[2024-01-12] MEDS ORDERED: ASPIRIN 325 MG TABLET ONE (11:02)
[2024-01-12] MEDS: ASPIRIN 325 MG TABLET PO ONE (11:23)
[2024-01-12 11:29] LABS: VENOUS BASE EXCESS -4.9 mmol/L (-2-2); VENOUS O2 SATURATION 70.6 % (70-80); VENOUS PCO2 39.3 mmHg (38-52); VENOUS PH 7.335 (7.310-7.410)
[2024-01-12 11:35] LABS: BASO % 0.3 % (0-2.0); EOS % 3.1 % (0-4.5); HEMATOCRIT 29.4 % (35.4-49); HEMOGLOBIN 9.7 GM/dL (11.7-16.9); LYMPH % 21.1 % (8-40); MCH 30.3 pg (25.7-33.7); MCHC 32.9 g/dl (32.0-35.9); MEAN PLT VOLUME 8.1 fl (7.5-11.1); MONO % 7.7 % (3.8-10.2); NEUT % 67.8 % (42.8-82.8); PLATELET COUNT 274 10^3/uL (134-434); RDW 13.9 % (11.9-15.9); WHITE BLOOD COUNT 11.2 K/mm3 (4.0-10.0)
[2024-01-12 11:46] LABS: PROTHROMBIN TIME (PATIENT) 11.5 SEC (9.7-13.0)
[2024-01-12 11:49] LABS: ACTIVATED PTT 34.5 SECONDS (25.2-36.5); POTASSIUM 4.7 mmol/L (3.5-5.1)
[2024-01-12 11:51] LABS: CALCIUM 9.4 mg/dL (8.5-10.1)
[2024-01-12 11:52] LABS: ALBUMIN 3.6 g/dl (3.4-5.0); BLOOD UREA NITROGEN 34.5 mg/dL (7-18)
[2024-01-12 11:55] LABS: CREATININE 1.4 mg/dL (0.55-1.3)
[2024-01-12 11:56] LABS: BILIRUBIN,TOTAL 0.5 mg/dL (0.2-1); TOT PROT 7.1 g/dl (6.4-8.2)
[2024-01-12 12:45] LABS: HIV INTERPRETATION NEGATIVE (NEGATIVE)
[2024-01-12] MEDS ORDERED: FUROSEMIDE 40 MG TABLET (FP) ONE (16:24)
[2024-01-12] MEDS: FUROSEMIDE 40 MG TABLET (FP) PO ONE (16:26)
[2024-01-12] MEDS: INSULIN ASPART SLIDING SCALE (NOVOLOG) 1 VIAL SQ SCH (22:00)
[2024-01-13] MEDS: ACETAMINOPHEN 325 MG TABLET (FP) PO PRN (00:19)
[2024-01-13] MEDS: FUROSEMIDE 40 MG TABLET (FP) PO SCH (05:33)
[2024-01-13 08:25] LABS: BASO % 0.7 % (0-2.0); EOS % 3.5 % (0-4.5); HEMATOCRIT 30.3 % (35.4-49); HEMOGLOBIN 10.4 GM/dL (11.7-16.9); LYMPH % 27.1 % (8-40); MCH 31.2 pg (25.7-33.7); MCHC 34.4 g/dl (32.0-35.9); MEAN CELL VOLUME 90.5 fl (80-96); MEAN PLT VOLUME 8.6 fl (7.5-11.1); MONO % 10.9 % (3.8-10.2); NEUT % 57.8 % (42.8-82.8); PLATELET COUNT 310 10^3/uL (134-434); RBC 3.35 M/mm3 (4.00-5.60); RDW 13.8 % (11.9-15.9); WHITE BLOOD COUNT 8.4 K/mm3 (4.0-10.0)
[2024-01-13 08:35] LABS: POTASSIUM 4.1 mmol/L (3.5-5.1)
[2024-01-13 08:38] LABS: CALCIUM 9.5 mg/dL (8.5-10.1)
[2024-01-13 08:39] LABS: BLOOD UREA NITROGEN 26.7 mg/dL (7-18); MAGNESIUM 1.5 mg/dL (1.8-2.4)
[2024-01-13 08:42] LABS: CREATININE 1.3 mg/dL (0.55-1.3); PHOSPHOROUS 4.3 mg/dL (2.5-4.9)
[2024-01-13 09:13] LABS: RETICULOCYTES 1.57 % (0.5-1.5)
[2024-01-13] MEDS: amLODIPine BESYLATE 10 MG TABLET (FP) PO SCH (09:27)
[2024-01-13] MEDS: metoPROLOL SUCCINATE 25 MG TAB.SR.24H (FP) PO SCH (09:27)
[2024-01-13] MEDS: FERROUS SO4 325 MG TABLET (FP) PO SCH (09:27)
[2024-01-13] MEDS: RANOLAZINE E.R. 500 MG TABLET (FP) PO SCH (09:27)
[2024-01-13] MEDS: HYDROCHLOROTHIAZIDE 12.5 MG CAPSULE (FP) PO SCH (09:27)
[2024-01-13] MEDS: ALLOPURINOL 100 MG TABLET (FP) PO SCH (09:27)
[2024-01-13] MEDS: PANTOPRAZOLE 40 MG TABLET PO SCH (09:27)
[2024-01-13] MEDS: LOSARTAN POTASSIUM 25 MG TABLET PO SCH (09:27)
[2024-01-13] MEDS: DULoxetine HCL 30 MG CAPSULE.DR PO SCH (09:27)
[2024-01-13] MEDS: HEPARIN NA (PORCINE) 5,000 UNITS/ML 1ML VIAL SQ SCH (13:45)
[2024-01-13 16:44] VITALS: BMI 20.3
[2024-01-13 21:33] LABS: EPI CELLS 5 /uL (0-25.1); HYALINE CASTS 2 /uL (0-3.1); URINE APPEARANCE CLEAR; URINE BACTERIA 3 /uL (0-1359); URINE BILIRUBIN NEGATIVE (NEGATIVE); URINE COLOR YELLOW; URINE GLUCOSE (UA) 1+ (NEGATIVE); URINE KETONE NEGATIVE (NEGATIVE); URINE LEUK ESTERASE 1+ (NEGATIVE); URINE NITRITE NEGATIVE (NEGATIVE); URINE PROTEIN 1+ (NEGATIVE); URINE RBC 12 /uL (0-23.9); URINE UROBILINOGEN 0.2 mg/dL (0.2-1.0); URINE WBC 37 /uL (0-25.8)
[2024-01-13] MEDS: ATORVASTATIN CA 40 MG TABLET (FP) PO SCH (21:54)
[2024-01-13] MEDS: GABAPENTIN 300 MG CAPSULE PO SCH (21:55)
[2024-01-14] MEDS: FUROSEMIDE 40 MG/4 ML INJECTABLE VIAL IVPUSH SCH (06:26)
[2024-01-14 07:04] LABS: BASO % 0.6 % (0-2.0); EOS % 4.7 % (0-4.5); HEMATOCRIT 30.4 % (35.4-49); HEMOGLOBIN 10.5 GM/dL (11.7-16.9); LYMPH % 30.4 % (8-40); MCH 31.2 pg (25.7-33.7); MCHC 34.4 g/dl (32.0-35.9); MEAN CELL VOLUME 90.7 fl (80-96); MEAN PLT VOLUME 8.2 fl (7.5-11.1); MONO % 10.4 % (3.8-10.2); NEUT % 53.9 % (42.8-82.8); PLATELET COUNT 300 10^3/uL (134-434); RBC 3.35 M/mm3 (4.00-5.60); RDW 13.8 % (11.9-15.9); WHITE BLOOD COUNT 9.5 K/mm3 (4.0-10.0)
[2024-01-14 07:18] LABS: POTASSIUM 4.1 mmol/L (3.5-5.1)
[2024-01-14 07:25] LABS: CALCIUM 8.8 mg/dL (8.5-10.1)
[2024-01-14 07:26] LABS: ALBUMIN 3.4 g/dl (3.4-5.0); BLOOD UREA NITROGEN 36.8 mg/dL (7-18)
[2024-01-14 07:28] LABS: CREATININE 1.8 mg/dL (0.55-1.3)
[2024-01-14 07:30] LABS: TOT PROT 6.9 g/dl (6.4-8.2)
[2024-01-14 07:32] LABS: BILIRUBIN,TOTAL 0.5 mg/dL (0.2-1)
[2024-01-14] MEDS: ASPIRIN COATED 81 MG TABLET.EC PO SCH (10:42)
[2024-01-14] MEDS: CLOPIDOGREL BISULFATE 300 MG TABLET PO ONE (11:45)
[2024-01-14] MEDS: ENOXAPARIN NA (PORCINE) 60 MG/0.6 ML DISP.SYRIN SQ SCH (23:00)
[2024-01-15] MEDS: INSULIN (LEVEMIR) 100 UNITS/ML UNITS SQ SCH (07:20)
[2024-01-15] MEDS: CLOPIDOGREL BISULFATE 75 MG TABLET (FP) PO SCH (09:46)
[2024-01-15] MEDS ORDERED: INSULIN ASPART SLIDING SCALE (NOVOLOG) 1 VIAL SQ ONE ×3 (11:50→17:13)
[2024-01-15] MEDS: DOCUSATE SODIUM 100 MG CAPSULE (FP) PO PRN (21:26)
[2024-01-16 06:34] VITALS: TEMP 97.3
[2024-01-16 09:08] VITALS: PULSE 92
[2024-01-16 14:53] VITALS: BP 98/63; RESP 16
== END 2024-01-16 12:08 | disposition short-term general hospital (02) | DRG 190 ==
LOC: JER 09:51 → JERBED 16:24 → J4W 20:55
PROVIDERS: ADMIT Internal Medicine; ATTEND Family Medicine
DX: I21.4 Non-ST elevation (NSTEMI) myocardial infarction (principal); J81.1 Chronic pulmonary edema; N17.9 Acute kidney failure, unspecified; I25.10 Atherosclerotic heart disease of native coronary artery without angina pectoris; R91.1 Solitary pulmonary nodule; J44.9 Chronic obstructive pulmonary disease, unspecified; M10.9 Gout, unspecified; E78.5 Hyperlipidemia, unspecified; D64.9 Anemia, unspecified; E86.0 Dehydration; M48.00 Spinal stenosis, site unspecified; I12.9 Hypertensive chronic kidney disease with stage 1 through stage 4 chronic kidney disease, or unspecified chronic kidney disease; E11.22 Type 2 diabetes mellitus with diabetic chronic kidney disease; N18.9 Chronic kidney disease, unspecified; I25.2 Old myocardial infarction
CPT/HCPCS: 0241U-QW; 36415; 71045-TC-FY; 71275-TC; 74018-TC-FY; 74174-TC; 76775-TC; 76856-TC; 80048; 80053; 81003; 82043; 82306; 82570; 82728; 82803; 82962; 83036; 83540; 83550; 83690; 83735; 83880; 84100; 84156; 84484; 85025; 85045; 85610; 85730; 86803; 87389; 93005; 93010; 93306-TC; 97116-GP; 97162-GP; 99285-25; J1644

== ENCOUNTER 2024-03-21 06:17 | Inpatient (IN) | payer OTHER ==
[2024-03-21] MEDS ORDERED: ALBUTEROL SO4 2.5/IPRATROPIUM 0.5 INH SOL 3 ML VIAL.NEB. NEB ONE ×2 (06:30→06:47)
[2024-03-21] MEDS ORDERED: methylPREDNISolone NA SUCC 125 MG/2 ML VIAL ONE (06:47)
[2024-03-21] MEDS: ALBUTEROL SO4 2.5/IPRATROPIUM 0.5 INH SOL 3 ML VIAL.NEB. NEB ONE (06:59)
[2024-03-21] MEDS: methylPREDNISolone NA SUCC 125 MG/2 ML VIAL IVPB ONE (06:59)
[2024-03-21 07:04] VITALS: BMI 26.6
[2024-03-21 08:07] LABS: BASO % 0.4 % (0-2.0); HEMATOCRIT 31.8 % (35.4-49); HEMOGLOBIN 10.6 GM/dL (11.7-16.9); LYMPH % 22.7 % (8-40); MCH 30.8 pg (25.7-33.7); MCHC 33.3 g/dl (32.0-35.9); MEAN CELL VOLUME 92.5 fl (80-96); MEAN PLT VOLUME 8.8 fl (7.5-11.1); MONO % 8.6 % (3.8-10.2); NEUT % 64.3 % (42.8-82.8); PLATELET COUNT 240 10^3/uL (134-434); RBC 3.44 M/mm3 (4.00-5.60); RDW 13.9 % (11.9-15.9); WHITE BLOOD COUNT 11.1 K/mm3 (4.0-10.0)
[2024-03-21 08:11] LABS: VENOUS BASE EXCESS -1.2 mmol/L (-2-2); VENOUS O2 SATURATION 52.1 % (70-80); VENOUS PCO2 47.5 mmHg (38-52); VENOUS PH 7.336 (7.310-7.410)
[2024-03-21 08:28] LABS: CALCIUM 9.3 mg/dL (8.5-10.1)
[2024-03-21 08:29] LABS: ALBUMIN 3.7 g/dl (3.4-5.0); BLOOD UREA NITROGEN 29.6 mg/dL (7-18)
[2024-03-21 08:32] LABS: CREATININE 1.4 mg/dL (0.55-1.3)
[2024-03-21 08:34] LABS: BILIRUBIN,TOTAL 0.4 mg/dL (0.2-1); TOT PROT 7.2 g/dl (6.4-8.2)
[2024-03-21 09:38] LABS: N-TERMINAL BNP 1346.8 pg/ml (5-450)
[2024-03-21] MEDS ORDERED: AZITHROMYCIN 500 MG TABLET ONE (09:42)
[2024-03-21] MEDS: AZITHROMYCIN 250 MG TABLET PO ONE (09:48)
[2024-03-21] MEDS ORDERED: FUROSEMIDE 40 MG/4 ML INJECTABLE VIAL ONE ×2 (10:13→17:27)
[2024-03-21] MEDS: FUROSEMIDE 40 MG/4 ML INJECTABLE VIAL IVPUSH ONE (10:30)
[2024-03-21] MEDS ORDERED: ASPIRIN COATED 81 MG TABLET.EC ONE (11:43)
[2024-03-21] MEDS ORDERED: CLOPIDOGREL BISULFATE 75 MG TABLET (FP) ONE (11:43)
[2024-03-21] MEDS: ASPIRIN COATED 81 MG TABLET.EC PO SCH (11:52)
[2024-03-21] MEDS: CLOPIDOGREL BISULFATE 75 MG TABLET (FP) PO ONE (11:52)
[2024-03-21] MEDS: INSULIN ASPART SLIDING SCALE (NOVOLOG) 1 VIAL SQ SCH (12:07)
[2024-03-21] MEDS: EMPAGLIFLOZIN (JARDIANCE) 10 MG TABLET PO SCH (17:33)
[2024-03-21] MEDS: FUROSEMIDE 40 MG/4 ML INJECTABLE VIAL IVPUSH SCH (17:34)
[2024-03-21] MEDS ORDERED: ATORVASTATIN CA 40 MG TABLET (FP) PO SCH (22:00)
[2024-03-21] MEDS: ATORVASTATIN CA 80 MG TABLET (FP) PO SCH (23:03)
[2024-03-22 08:30] LABS: BASO % 0.2 % (0-2.0); HEMATOCRIT 32.1 % (35.4-49); HEMOGLOBIN 10.7 GM/dL (11.7-16.9); LYMPH % 22.5 % (8-40); MCH 30.8 pg (25.7-33.7); MCHC 33.2 g/dl (32.0-35.9); MEAN CELL VOLUME 92.8 fl (80-96); MEAN PLT VOLUME 8.7 fl (7.5-11.1); MONO % 9.9 % (3.8-10.2); NEUT % 67.4 % (42.8-82.8); PLATELET COUNT 267 10^3/uL (134-434); RBC 3.46 M/mm3 (4.00-5.60); RDW 13.9 % (11.9-15.9); WHITE BLOOD COUNT 8.8 K/mm3 (4.0-10.0)
[2024-03-22 08:40] LABS: POTASSIUM 4.2 mmol/L (3.5-5.1)
[2024-03-22 08:48] LABS: CALCIUM 9.6 mg/dL (8.5-10.1)
[2024-03-22 08:49] LABS: ALBUMIN 3.8 g/dl (3.4-5.0); BLOOD UREA NITROGEN 44.2 mg/dL (7-18); MAGNESIUM 2.2 mg/dL (1.8-2.4)
[2024-03-22 08:50] LABS: CREATININE 1.6 mg/dL (0.55-1.3)
[2024-03-22 08:52] LABS: PHOSPHOROUS 5.9 mg/dL (2.5-4.9)
[2024-03-22 08:53] LABS: BILIRUBIN,TOTAL 0.4 mg/dL (0.2-1); TOT PROT 7.4 g/dl (6.4-8.2)
[2024-03-22] MEDS: ISOSORBIDE MONONITRATE 30 MG TAB.SR.24H (FP) PO SCH (09:20)
[2024-03-22] MEDS: CLOPIDOGREL BISULFATE 75 MG TABLET (FP) PO SCH (09:20)
[2024-03-22] MEDS: CARVEDILOL 6.25 MG TABLET (FP) PO ONE (17:18)
[2024-03-22] MEDS: CEFTRIAXONE 2 GM-D5W BAG 2 GM/50 ML BAG IVPB SCH (18:49)
[2024-03-22 19:48] LABS: ARTERIAL BLD GAS O2 SATURATION 99.5 % (95-98); ARTERIAL BLOOD GAS BASE EXCESS -2.9 mmol/L (-2-2); ARTERIAL BLOOD GAS PO2 220.5 mmHg (80-100); ARTERIAL BLOOD GAS pH 7.414 (7.350-7.450)
[2024-03-22 19:49] LABS: ALLENS TEST POSITIVE
[2024-03-22 19:56] LABS: HEMATOCRIT 34.4 % (35.4-49); HEMOGLOBIN 11.8 GM/dL (11.7-16.9); MCH 31.5 pg (25.7-33.7); MCHC 34.3 g/dl (32.0-35.9); MEAN CELL VOLUME 91.8 fl (80-96); MEAN PLT VOLUME 8.6 fl (7.5-11.1); PLATELET COUNT 280 10^3/uL (134-434); RBC 3.75 M/mm3 (4.00-5.60); RDW 13.9 % (11.9-15.9); WHITE BLOOD COUNT 6.9 K/mm3 (4.0-10.0)
[2024-03-22 20:15] LABS: POTASSIUM 3.9 mmol/L (3.5-5.1)
[2024-03-22 20:17] LABS: ALBUMIN 3.6 g/dl (3.4-5.0); BLOOD UREA NITROGEN 55.1 mg/dL (7-18)
[2024-03-22 20:19] LABS: CREATININE 2.1 mg/dL (0.55-1.3)
[2024-03-22 20:21] LABS: BILIRUBIN,TOTAL 0.3 mg/dL (0.2-1); TOT PROT 7.4 g/dl (6.4-8.2)
[2024-03-22] MEDS: SODIUM CHLORIDE 500 ML IV STA (20:41)
[2024-03-22] MEDS: AZITHROMYCIN IVPB 500 MG/250 ML BAG IVPB SCH (20:41)
[2024-03-23 08:50] LABS: BASO % 0.5 % (0-2.0); EOS % 2.8 % (0-4.5); HEMATOCRIT 33.8 % (35.4-49); HEMOGLOBIN 11.7 GM/dL (11.7-16.9); MCH 31.7 pg (25.7-33.7); MCHC 34.5 g/dl (32.0-35.9); MEAN CELL VOLUME 91.8 fl (80-96); MEAN PLT VOLUME 8.6 fl (7.5-11.1); MONO % 5.5 % (3.8-10.2); NEUT % 57.2 % (42.8-82.8); PLATELET COUNT 282 10^3/uL (134-434); RBC 3.69 M/mm3 (4.00-5.60); WHITE BLOOD COUNT 9.9 K/mm3 (4.0-10.0)
[2024-03-23 09:04] LABS: POTASSIUM 4.1 mmol/L (3.5-5.1)
[2024-03-23 09:11] LABS: CALCIUM 9.4 mg/dL (8.5-10.1)
[2024-03-23 09:13] LABS: BLOOD UREA NITROGEN 54.2 mg/dL (7-18)
[2024-03-23 09:15] LABS: CREATININE 1.8 mg/dL (0.55-1.3)
[2024-03-23] MEDS ORDERED: FUROSEMIDE 40 MG TABLET (FP) PO SCH (10:00)
[2024-03-23] MEDS: CARVEDILOL 6.25 MG TABLET (FP) PO SCH (10:22)
[2024-03-23] MEDS: AZITHROMYCIN IVPB 500 MG/250 ML BAG IVPB SCH (12:05)
[2024-03-24 08:39] LABS: BLOOD UREA NITROGEN 45.1 mg/dL (7-18); CALCIUM 9.3 mg/dL (8.5-10.1)
[2024-03-24 08:43] LABS: CREATININE 1.5 mg/dL (0.55-1.3)
[2024-03-24] MEDS: FUROSEMIDE 20 MG TABLET (FP) PO SCH (11:45)
[2024-03-25 07:52] LABS: BASO % 0.5 % (0-2.0); EOS % 5.1 % (0-4.5); HEMATOCRIT 32.8 % (35.4-49); HEMOGLOBIN 10.6 GM/dL (11.7-16.9); LYMPH % 29.4 % (8-40); MCH 30.4 pg (25.7-33.7); MCHC 32.3 g/dl (32.0-35.9); MEAN CELL VOLUME 94.1 fl (80-96); MEAN PLT VOLUME 8.3 fl (7.5-11.1); MONO % 9.3 % (3.8-10.2); NEUT % 55.7 % (42.8-82.8); PLATELET COUNT 253 10^3/uL (134-434); RBC 3.48 M/mm3 (4.00-5.60); RDW 13.9 % (11.9-15.9); WHITE BLOOD COUNT 10.6 K/mm3 (4.0-10.0)
[2024-03-25 08:13] LABS: CALCIUM 9.4 mg/dL (8.5-10.1)
[2024-03-25 08:14] LABS: ALBUMIN 3.6 g/dl (3.4-5.0)
[2024-03-25 08:15] LABS: BLOOD UREA NITROGEN 41.3 mg/dL (7-18)
[2024-03-25 08:17] LABS: CREATININE 1.4 mg/dL (0.55-1.3)
[2024-03-25 08:19] LABS: BILIRUBIN,TOTAL 0.6 mg/dL (0.2-1); TOT PROT 7.1 g/dl (6.4-8.2)
[2024-03-25] MEDS: FUROSEMIDE 40 MG TABLET (FP) PO SCH ×2 (09:22→14:32)
[2024-03-25] MEDS: ENOXAPARIN NA (PORCINE) 60 MG/0.6 ML DISP.SYRIN SQ SCH (13:25)
[2024-03-25] MEDS: predniSONE 10 MG TABLET (UD) PO SCH (13:25)
[2024-03-25] MEDS: ALBUTEROL SO4 2.5/IPRATROPIUM 0.5 INH SOL 3 ML VIAL.NEB. NEB SCH (16:42)
[2024-03-26] MEDS: EMPAGLIFLOZIN (JARDIANCE) 10 MG TABLET PO SCH (06:27)
[2024-03-27] MEDS ORDERED: INSULIN (LEVEMIR) 100 UNITS/ML UNITS SQ SCH (08:45)
[2024-03-27] MEDS: INSULIN (LEVEMIR) 100 UNITS/ML UNITS SQ SCH (10:02)
[2024-03-27 11:15] LABS: ARTERIAL BLD GAS O2 SATURATION 92.1 % (95-98); ARTERIAL BLOOD GAS BASE EXCESS -4.3 mmol/L (-2-2); ARTERIAL BLOOD GAS PO2 63.5 mmHg (80-100); ARTERIAL BLOOD GAS pH 7.378 (7.350-7.450)
[2024-03-27 11:18] LABS: ALLENS TEST POSITIVE
[2024-03-28 08:32] LABS: POTASSIUM 4.4 mmol/L (3.5-5.1)
[2024-03-28 08:40] LABS: ALBUMIN 4.1 g/dl (3.4-5.0); BLOOD UREA NITROGEN 59.3 mg/dL (7-18)
[2024-03-28 08:43] LABS: CREATININE 1.6 mg/dL (0.55-1.3)
[2024-03-28 08:45] LABS: BILIRUBIN,TOTAL 0.5 mg/dL (0.2-1)
[2024-03-28 11:23] VITALS: RESP 16
[2024-03-28 14:58] VITALS: BP 138/80; PULSE 98; TEMP 97.9
== END 2024-03-28 15:58 | disposition home health service (06) | DRG 194 ==
LOC: JER 06:17 → JERBED 09:11 → J4W 21:06 → OBSVTOIN 03-23 11:26 → J4W 03-27 22:45
PROVIDERS: ADMIT Internal Medicine; ATTEND Internal Medicine
DX: I13.0 Hypertensive heart and chronic kidney disease with heart failure and stage 1 through stage 4 chronic kidney disease, or unspecified chronic kidney disease (principal); J96.01 Acute respiratory failure with hypoxia; N17.9 Acute kidney failure, unspecified; J44.1 Chronic obstructive pulmonary disease with (acute) exacerbation; J44.9 Chronic obstructive pulmonary disease, unspecified; I50.23 Acute on chronic systolic (congestive) heart failure; N18.9 Chronic kidney disease, unspecified; E78.5 Hyperlipidemia, unspecified; I25.10 Atherosclerotic heart disease of native coronary artery without angina pectoris; E11.9 Type 2 diabetes mellitus without complications
CPT/HCPCS: 0241U-QW; 36415; 36600; 71045-TC-FY; 71250-TC; 80048; 80053; 82803; 82962; 83735; 83880; 84100; 84439; 84443; 84484; 85025; 85027; 87040; 93005; 93010; 93306-TC; 93970-TC; 94640; 94761; 97116-GP; 97161-GP; 99285-25; G0378